=== PATIENT | male | born 1980 | race Caucasian/White ===

== ENCOUNTER → 2017-05-13 | Outpatient (CLI) | payer OTHER ==
[~2017-05-13] MED LIST: ALBU8.5H IH; AMOX-559 PO; BENZ100C4 PO; CETI1TAB80 PO; CYCL10TA29 PO; LISI-362 PO; LISI20TA29 PO; LISI30TA49 PO; METH4TAB66 PO; RANI-324 PO; TRAM-420 PO
== END ==
LOC: LAB 09:12
PROVIDERS: ATTEND Emergency Medicine
DX: I10 Essential (primary) hypertension (principal)
CPT/HCPCS: 36415; 82310; 82374; 82435; 82565; 82947; 84132; 84295; 84520

== ENCOUNTER → 2017-05-18 | Outpatient (CLI) | payer OTHER | LOC: LAB 15:12 | PROVIDERS: ATTEND Emergency Medicine | DX: J02.9 Acute pharyngitis, unspecified (principal) | CPT/HCPCS: 87070 ==

== ENCOUNTER → 2017-05-21 | Outpatient (CLI) | payer OTHER | LOC: RESP 19:43 | PROVIDERS: ATTEND Emergency Medicine | DX: G47.33 Obstructive sleep apnea (adult) (pediatric) (principal); G47.36 Sleep related hypoventilation in conditions classified elsewhere; E66.9 Obesity, unspecified ==

== ENCOUNTER → 2017-06-18 | Outpatient (CLI) | payer OTHER | LOC: RESP 22:09 | PROVIDERS: ATTEND Emergency Medicine | DX: G47.33 Obstructive sleep apnea (adult) (pediatric) (principal); G47.36 Sleep related hypoventilation in conditions classified elsewhere; E66.01 Morbid (severe) obesity due to excess calories ==

== ENCOUNTER → 2017-07-16 | Outpatient (CLI) | payer OTHER ==
[~2017-07-16] MED LIST changes: +physical therapy
--- NOTE | 2017-07-16 11:24 | RADIOLOGY IMAGING REPORT ---
FACILITY: [facility] - [place] PATIENT NAME: Emerson Cano : 1980 MR: [id number] V: [id number] EXAM DATE: ORDERING PHYSICIAN: KOMAL PARKER TECHNOLOGIST: Location: [facility] Patient: Emerson Cano : 1980 Visit/Account:[id number] Date of Sevice: 07/16/2017 Exam type: KNEE 4 VIEW RIGHT History: Tight after playing basketball two days ago, pain currently in right knee Comparison: None. Findings: There is no evidence of acute fracture or dislocation involving the right knee. There is very mild n arrowing of the medial compartment which is likely related to very mild degenerative change. No intr a-articular loose bodies are seen. IMPRESSION: 1. Very mild narrowing of the medial compartment of right knee likely degenerative in nature Report Dictated By: Colleen Ch MD at 07/16/2017 11:18 AM Report E-Signed By: Colleen Ch MD at 07/16/2017 11:19 AM WSN:[email or web address]
== END ==
LOC: RAD 09:43
PROVIDERS: ATTEND Nurse Practitioner Family
DX: M17.11 Unilateral primary osteoarthritis, right knee (principal)
CPT/HCPCS: 73564

== ENCOUNTER → 2018-07-12 | Outpatient (CLI) | payer OTHER ==
[~2018-07-12] MED LIST changes: +CEFU250T11 PO; +FLUT16SP19 NS; -RANI-324 PO; +RANI-366 PO
[2018-07-12 10:05] LABS: PLATELET COUNT, AUTOMATED 130 K/uL (150-450)
[2018-07-12 10:43] LABS: LDL CHOLESTEROL 81 mg/dl
== END ==
LOC: LAB 09:42
PROVIDERS: ATTEND Emergency Medicine
DX: K75.81 Nonalcoholic steatohepatitis (NASH) (principal); I10 Essential (primary) hypertension
CPT/HCPCS: 36415; 82040; 82247; 82310; 82374; 82435; 82465; 82565; 82947; 83718; 84075; 84132; 84155; 84295; 84450; 84460; 84478; 84520; 85025

== ENCOUNTER → 2018-07-29 | Outpatient (CLI) | payer OTHER ==
--- NOTE | 2018-07-29 16:35 | RADIOLOGY IMAGING REPORT ---
FACILITY: [facility] - [place] PATIENT NAME: Emerson Cano : 1980 MR: [id number] V: [id number] EXAM DATE: ORDERING PHYSICIAN: LETICIA DE SANTIAGO TECHNOLOGIST: Location: [facility] Patient: Emerson Cano : 1980 Visit/Account:[id number] Date of Sevice: 07/29/2018 MR KNEE RT W/O CONTRAST COMPARISON: None. HISTORY: Right knee pain and locking episodes. TECHNIQUE: Noncontrast multiplanar MRI of the right knee utilizing T1 weighted and fluid sensitive s equences. CONTRAST: None. FINDINGS: FLUID: Moderate sized simple effusion. Approximate 1 x 4 x 5 cm Fishman's cyst, with mild adjacent sof t tissue edema, with both superficial and deep components. There is mild medial subcutaneous fat aruna a. MENISCI: Diminutive size defect consistent with a radial tear along the inner margin of the posterio r horn of the medial meniscus, series 5 image 24 and series 4 image 24. The lateral meniscus is intac t. TENDONS/LIGAMENTS: The anterior and posterior cruciate ligaments are intact. The medial collateral ligament is intact. The fibular collateral ligament, biceps femoris tendon, iliotibial tract and pop liteus tendon are intact and unremarkable. Retinacula and extensor mechanism are intact and unremark able. MUSCLES: There is no muscle atrophy or edema. CARTILAGE: Full and partial thickness patellar median ridge and medial patellar facet articular cart ilage loss with mild subjacent subchondral edema. The distal femoral trochlear cartilage is intact. M ild focal thinning of the weightbearing central medial tibial plateau cartilage with subjacent subcho ndral edema. 6 x 8 mm (series 5 image 26, series 4 image 11) full-thickness cartilage defect lining the posterior nonweightbearing lateral femoral condyle, without subjacent marrow signal abnormality. BONES: Subchondral edema due to overlying cartilage loss as above, otherwise normal marrow signal an d alignment. OTHER: Negative. IMPRESSION: 1. Moderate right knee effusion. 5 cm Fishman's cyst with adjacent soft tissue edema. 2. Tiny radial tear, posterior horn of the medial meniscus. 3. Tricompartmental chondral loss with full-thickness patellar and lateral femoral condyle cartilage defects as described. Report Dictated By: Carlitos Neal at 07/29/2018 4:21 PM Report E-Signed By: Carlitos Neal at 07/29/2018 4:32 PM WSN:[email or web address]
== END ==
LOC: MRI 06:39
PROVIDERS: ATTEND Orthopaedic Surgery
DX: M25.461 Effusion, right knee (principal); M71.21 Synovial cyst of popliteal space [Baker], right knee; S83.241A Other tear of medial meniscus, current injury, right knee, initial encounter

== ENCOUNTER → 2018-08-09 | Outpatient (CLI) | payer OTHER ==
--- NOTE | 2018-08-09 11:53 | EKG ---
FACILITY: [facility] - [place] PATIENT NAME: KASSI CEJA : [id number] MR: [id number] V: [id number] EXAM DATE: ORDERING PHYSICIAN: PRIETO BOSS TECHNOLOGIST: Test Reason : Blood Pressure : / mmHG Vent. Rate : 061 BPM Atrial Rate : 061 BPM P-R Int : 152 ms QRS Dur : 098 ms QT Int : 428 ms P-R-T Axes : 012 065 039 degrees QTc Int : 430 ms Sinus rhythm No acute appearing findings Artifact in anterior leads No previous ECGs available Confirmed by CATHERINE NERI ([id number] on 08/09/2018 4:50:31 PM Referred By: Confirmed By:CATHERINE NERI
== END ==
LOC: LAB 11:24
PROVIDERS: ATTEND Anesthesiology
DX: Z01.812 Encounter for preprocedural laboratory examination (principal); Z01.810 Encounter for preprocedural cardiovascular examination; S83.241A Other tear of medial meniscus, current injury, right knee, initial encounter; M22.41 Chondromalacia patellae, right knee
CPT/HCPCS: 36415; 82040; 82247; 82310; 82374; 82435; 82565; 82947; 84075; 84132; 84155; 84295; 84450; 84460; 84520; 93005

== ENCOUNTER → 2018-08-16 | Outpatient (CLI) | payer OTHER ==
[2018-08-16 09:48] LABS: INR 1.02
== END ==
LOC: LAB 09:19
PROVIDERS: ATTEND Anesthesiology
DX: Z01.812 Encounter for preprocedural laboratory examination (principal); S83.241A Other tear of medial meniscus, current injury, right knee, initial encounter; M94.261 Chondromalacia, right knee
CPT/HCPCS: 36415; 85610

== ENCOUNTER → 2018-08-23 | Day surgery (SDC) | payer OTHER ==
[~2018-08-23] VITALS: Ht 182.9 cm; Wt 111.6 kg
[~2018-08-23] MED LIST changes: +CELECOXIB 200 MG CAP PO ONE; +DEXAMETHASONE SOD 4 MG/ML VIAL ONE; +LAN30PT PO; +LIDOCAINE 2% IV 100 MG/5ML SYR ONE; +LIDOCAINE/SOD BICARB 8.4% SYR ID ONE; +MIDAZOLAM 2 MG/2 ML VIAL IVP PRN; +ONDANSETRON 4 MG/2 ML VIAL ONE; +OXYC5CAP21 PO; +PROMETHAZINE 25 MG/ML 1 ML AMP ONE; +PROPOFOL EMUL(*) 10MG/ML 20 ML 40 ML ONE; +RIVA10TA PO; +ROPIVACAINE 0.2% 20 ML VIAL ONE; +ceFAZolin(*) 2GM/D5W 50ML 50 ML IVPB ONE; +fentaNYL CITR 100 MCG/2 ML AMP ONE; +fentaNYL CITR 250 MCG/5 ML AMP ONE; +traMADol 50 MG TAB PO ONE
[2018-08-23] MEDS: NORMOSOL R SOLN(*) 1000 ML BAG 1,000 ML IV PRN ×2 (10:45→13:25)
[2018-08-23 11:03] VITALS: BP 133/87
[2018-08-23 13:53] VITALS: BP 97/61
--- NOTE | 2018-08-23 13:56 | OPERATIVE REPORT 1 ---
EVENT DATE: August 23, 2018 SURGEON: Guillermo Zapata MD ANESTHESIOLOGIST: Jose Antonio Vivas MD ANESTHESIA: General. GLOBAL MOBILITY SPECIALIST: Casey Reid PA-C PREOPERATIVE DIAGNOSIS Right knee medial meniscus tear and chondromalacia tricompartmental. POSTOPERATIVE DIAGNOSIS Right knee medial meniscus tear, chondromalacia grade III and area of grade IV on the anterior medial tibial plateau, chondromalacia high grade III of the lateral femoral condyle, chondromalacia grade III of the patella, and two loose bodies approximately 5 x 5 mm. PROCEDURE PERFORMED Right knee arthroscopy with partial medial meniscectomy, debridement of tricompartment chondromalacia, followed by abrasion chondroplasty of the medial tibial plateau and removal loose bodies. IMPLANTS None. SPECIMENS None. COMPLICATIONS None. ESTIMATED BLOOD LOSS Minimal. DESCRIPTION OF PROCEDURE The patient was brought to the OR after receiving appropriate preoperative antibiotic and Dr. Vivas performed general anesthesia. The right thigh tourniquet placed, but we did not utilize this. The right lower extremity prepped in the usual sterile fashion. I established the lateral portal and went into the medial compartment and established a medial portal. The medial compartment was entered. The articular cartilage was intact on the femur. There was degenerative tearing in the mid-body proceeding to the posterior horn of the medial meniscus. This was debided with biters, shaved and was now stable to probing. Anteromedially, there was a grade IV lesion, a small area of grade III surrounding this, approximately 10 x 10 mm. We debrided this down to a stable base and then utilizing the isa motor shaver, performed abrasion chondroplasty to get through the subchondral bone and we noted the punctate bleeding. There were no loose bodies in the gutters or suprapatellar pouch. The notch showed intact ACL and PCL. The lateral compartments entered. There were two loose bodies. These were removed with the shaver. These had come from the lateral femoral condyle. There was grade III lesion here noted, approximately 12 x 25 mm in area. There was no exposed bone. The meniscus was intact. The cartilage was intact on the tibia. The shaver was inserted, loose bodies removed and the lateral femoral condyle and chondromalacia debrided down to stable base with the shaver. The patellofemoral compartments entered. The groove was without lesion. The patella showed generalized natalia III lesion from the lateral facet to the medial facet. This was debrided down to stable base with the shaver. Instrumentation was removed, portals closed subcutaneously with 4-0 Monocryl, 4 x 4s and Steri-Strips. Injection of the portals with Ropivacaine, followed by compressive dressing. The patient was extubated and was taken to recovery in stable condition. Touch-down weight bearing will be prescribed, range of motion and strengthening as tolerated. Tylenol, Tramadol and Oxy-IR for pain. We will see him next week in our [facility]. ALLEN
[2018-08-23 14:30] VITALS: BP 116/64
[2018-08-23 15:00] VITALS: BP 112/73
[2018-08-23 15:11] VITALS: BP 117/59
[2018-08-23 15:13] VITALS: BP 121/78
--- NOTE | 2018-08-23 16:56 | NUR ---
1353 PT REC'D IN SD BY Josselin CHIANG, RN, Rima PUENTE, RN SOON TOOK OVER AND PERFORMED FIRST ASSESSMENT 1400 PT TOLERATING JELLO AND GRAPE JUICE, KEEPS REQUESTING MORE 1430 VSS, FIRST PO PAIN PILL GIVEN, PAIN 4/10 1500 PAIN 0/10, TOLERATING TOTAL 4 JELLO AND 6 GRAPE JUICE SERVINGS WITH 1 GLASS OF WATER, NO NAUSEA REPORTED 1515 ORTHOSTATICS DONE SO PT CAN USE RESTROOM, UP WITH CRUTCHES, ADJUSTED BY Rima PUENTE FOR HEIGHT, DRESSED WITH ASSISTANCE OF 1535 D/C INSTRUCTIONS COVERED WITH AND PT, ALL QUESTIONS ANSWERED, PT AND F/U APPTS ALREADY SET, PT AWARE 1540 IV OUT, REASSESSED 1548 OUT TO CARE VIA WC, PT SELF TRANSFERRED WITH HELP OF CRUTCHES TO VEHICLE OUTSIDE OF ADMITTING ENTRANCE WITHOUT DIFFICULTY. ALL BELONGINGS WITH PT.
== END ==
LOC: OR 01:31
PROVIDERS: ATTEND Orthopaedic Surgery
DX: S83.241A Other tear of medial meniscus, current injury, right knee, initial encounter (principal)
CPT/HCPCS: 29881; J1100; J2001; J2405; J2550; J2704; J2795; J3010; J0690

== ENCOUNTER → 2018-09-14 | Outpatient (CLI) | payer OTHER ==
[~2018-09-14] MED LIST changes: -CELECOXIB 200 MG CAP PO ONE; -DEXAMETHASONE SOD 4 MG/ML VIAL ONE; -LIDOCAINE 2% IV 100 MG/5ML SYR ONE; -LIDOCAINE/SOD BICARB 8.4% SYR ID ONE; -MIDAZOLAM 2 MG/2 ML VIAL IVP PRN; -ONDANSETRON 4 MG/2 ML VIAL ONE; -PROMETHAZINE 25 MG/ML 1 ML AMP ONE; -PROPOFOL EMUL(*) 10MG/ML 20 ML 40 ML ONE; -ROPIVACAINE 0.2% 20 ML VIAL ONE; -ceFAZolin(*) 2GM/D5W 50ML 50 ML IVPB ONE; -fentaNYL CITR 100 MCG/2 ML AMP ONE; -fentaNYL CITR 250 MCG/5 ML AMP ONE; -traMADol 50 MG TAB PO ONE
--- NOTE | 2018-09-14 15:04 | RADIOLOGY IMAGING REPORT ---
FACILITY: [facility] PATIENT NAME: Erich Cano : 1980 MR: [id number] V: [id number] EXAM DATE: ORDERING PHYSICIAN: LETICIA DE SANTIAGO TECHNOLOGIST: Location: [facility] Patient: Erich Cano : 1980 Visit/Account:[id number] Date of Sevice: 09/14/2018 Exam type: US VENOUS LOWER EXT RT History: Right calf pain x3 weeks status post knee arthroscopy Comparison: None. Findings: The right lower extremity veins were imaged including the right common femoral vein, superficial femo ral vein, greater saphenous vein, popliteal vein, posterior tibial vein, peroneal vein and anterior t ibial vein revealing no evidence of intraluminal thrombi. The veins were compressible and demonstrat ed augmentation. IMPRESSION: 1. No sonographic evidence DVT involving the right lower extremity veins Report Dictated By: Colleen Ch MD at 09/14/2018 2:59 PM Report E-Signed By: Colleen Ch MD at 09/14/2018 3:00 PM WSN:[email or web address]
== END ==
LOC: US 12:45
PROVIDERS: ATTEND Orthopaedic Surgery
DX: R22.41 Localized swelling, mass and lump, right lower limb (principal); Z98.890 Other specified postprocedural states

== ENCOUNTER → 2018-12-13 | Outpatient (CLI) | payer OTHER ==
[~2018-12-13] MED LIST changes: +CHOL100052 PO; +HYDR-2966 PO; +LISI-374 PO; -RANI-366 PO; +RANI-54 PO
[2018-12-13 18:17] LABS: PLATELET COUNT, AUTOMATED 123 K/uL (150-450)
== END ==
LOC: LAB 16:45
PROVIDERS: ATTEND Emergency Medicine
DX: D69.6 Thrombocytopenia, unspecified (principal); I10 Essential (primary) hypertension; K75.81 Nonalcoholic steatohepatitis (NASH); E66.01 Morbid (severe) obesity due to excess calories
CPT/HCPCS: 82040; 82247; 82306; 82310; 82374; 82435; 82565; 82947; 83036; 84075; 84132; 84155; 84295; 84443; 84450; 84460; 84520; 85025